=== PATIENT | female | born 1975 | race African-American/Black ===

== ENCOUNTER 2021-08-14 17:49 | Observation (INO) ==
[2021-08-14] MEDS ORDERED: ASPIRIN 325 MG TABLET PO STA (18:47)
[2021-08-14] MEDS ORDERED: ONDANSETRON 4 MG/2 ML VIAL IV STA (18:47)
[2021-08-14] MEDS ORDERED: DEXAMETHASONE 4 MG/1 ML VIAL IV STA (18:49)
[2021-08-14 20:00] LABS: INR 1.1; PT Patient Result 11.8 SECS (10.5-12.0)
[2021-08-14 20:10] LABS: Basophils % 0.2 % (0.0-0.8); Eosinophils % 0.3 % (0.00-10.9); Hematocrit 38.3 VOL% (35.7-47.0); Hemoglobin 11.1 GM/DL (12.0-16.0); Immature Granulocytes % 0.3 %; Immature Granulocytes Absolute 0.02 #; Lymphocytes # 1.6 10*3/uL (1.4-4.0); Lymphocytes % 27.1 % (21.3-54.2); Mean Corpuscular Volume 81.7 FL (87-102); Mean Platelet Volume 10.2 FL (9.6-12.0); Monocytes % 8.4 % (1.7-12.7); Neutrophils % 63.7 % (38.7-73.9); Platelet Count 424 T/CUMM (130-400); Red Blood Count 4.69 MC/CUMM (3.8-5.5); Red Cell Distribution Width 17.4 % (9.3-17.3); White Blood Count 5.8 T/CUMM (4-12)
[2021-08-14 20:16] LABS: Alanine Aminotransferase 15 U/L (13-56); Albumin 3.2 G/DL (3.4-5.0); Alkaline Phosphatase 47 U/L (45-117); Anisocytosis 2+; Aspartate Amino Transferase 15 U/L (0-37); Bilirubin,Total < 0.39 MG/DL (0.20-1.00); Blood Urea Nitrogen 10 MG/DL (7-18); Calcium 9.2 MG/DL (8.5-10.1); Carbon Dioxide 25 MMOL/L (21-32); Elliptocytes 1+; Estimated Glom Filtration Rate 146 ML/MIN; Glucose 82 MG/DL (74-106); Macrocytosis 1+; Microcytosis 2+; Osmolality,Calculated 274.5 MOS/KG (273-304); Poikilocytosis 1+; Polychromasia 1+; Sodium 139 MMOL/L (136-145); Total Protein 8.9 G/DL (6.4-8.2)
[2021-08-14 20:17] LABS: Hypochromasia 1+
[2021-08-14 20:18] LABS: Platelet Estimate Increased
[2021-08-14] MEDS ORDERED: KETOROLAC 30 MG/1 ML VIAL IV STA (21:00)
[2021-08-14] MEDS ORDERED: ONDANSETRON 4 MG/2 ML VIAL IV PRN (22:31)
[2021-08-14 23:20] LABS: Bilirubin,Urine Negative (Negative); Blood, Urine Negative (Negative); Glucose,Urine (UA) Negative (Negative); Ketones,Urine Negative (Negative); Mucus,Urine Few /LPF (Occasional); Nitrite,Urine Negative (Negative); Protein,Urine Negative; RBC,Urine 4 /HPF (0-4); Squamous Epithelial Cell,Urine Few /HPF (0-10); Urine Appearance CLEAR (Clear); Urine Color Yellow (Yellow); Urine Urobilinogen < 2.0 EU/DL (<2.0)
[2021-08-14 23:23] LABS: Urine Specific Gravity >= 1.050 (1.001-1.035)
[2021-08-15 05:58] LABS: Albumin 3.3 G/DL (3.4-5.0); Bilirubin,Total 0.8 MG/DL (0.20-1.00); Calcium 9.4 MG/DL (8.5-10.1); Osmolality,Calculated 273.1 MOS/KG (273-304); Potassium 4.2 MMOL/L (3.5-5.1); Total Protein 9.2 G/DL (6.4-8.2)
[2021-08-15 06:10] LABS: Basophils % 0.2 % (0.0-0.8); Hematocrit 37.5 VOL% (35.7-47.0); Immature Granulocytes % 0.3 %; Immature Granulocytes Absolute 0.02 #; Lymphocytes # 0.7 10*3/uL (1.4-4.0); Lymphocytes % 12.5 % (21.3-54.2); Mean Corpuscular HGB Conc 29.3 GM/DL (32-36); Mean Platelet Volume 10.2 FL (9.6-12.0); Monocytes % 0.8 % (1.7-12.7); Neutrophils % 86.2 % (38.7-73.9); Platelet Count 405 T/CUMM (130-400); Red Blood Count 4.63 MC/CUMM (3.8-5.5); Red Cell Distribution Width 17.5 % (9.3-17.3); White Blood Count 5.9 T/CUMM (4-12)
[2021-08-15] MEDS: ALBUTEROL/IPRATROPIUM 3 ML NEB RESP TX SCH ×3 (06:55→19:57)
[2021-08-15] MEDS ORDERED: ALBUTEROL 2.5 MG/3 ML NEB RESP TX PRN (08:58)
[2021-08-15] MEDS ORDERED: ACETAMINOPHEN 325 MG TABLET PO PRN (09:06)
[2021-08-15] MEDS ORDERED: ACETAMINOPHEN 325 MG TABLET ONE (09:42)
[2021-08-15] MEDS: predniSONE 20 MG TABLET PO SCH (09:42)
[2021-08-16] MEDS: ALBUTEROL/IPRATROPIUM 3 ML NEB RESP TX SCH ×3 (00:02→11:55)
[2021-08-16] MEDS ORDERED: FUROSEMIDE 40 MG TABLET PO ONE (09:00)
[2021-08-16] MEDS: predniSONE 20 MG TABLET PO SCH (10:30)
[2021-08-16 16:46] VITALS: BP 136/82
== END 2021-08-16 17:20 | disposition home or self-care (01) ==
LOC: EDBD → EDUNIT# → N.EDINP 17:49 → N.ED 17:49 → N.3E 08-15 14:56
PROVIDERS: ADMIT Internal Medicine; ATTEND Internal Medicine